=== PATIENT | male | born 1945 | race Caucasian/White ===

== ENCOUNTER 2022-01-29 10:22 | Day surgery (SDC) | payer MEDICARE, BC ==
[2022-01-24 13:50] LABS: BASOPHILS % (AUTO) 0.5 % (0-1); EOSINOPHILS # (AUTO) 0.1 X10'3 (0-0.9); EOSINOPHILS % (AUTO) 1.1 % (0-6); HEMATOCRIT 43.4 % (42.0-52.0); HEMOGLOBIN 14.5 g/dl (14.0-17.9); LYMPHOCYTES # (AUTO) 1.1 X10'3 (1.1-4.8); LYMPHOCYTES % (AUTO) 15.8 % (21-51); MEAN CORPUSCULAR HEMOGLOBIN 29.4 PG (27.0-31.0); MEAN CORPUSCULAR HGB CONC 33.3 g/dL (33.0-36.5); MEAN CORPUSCULAR VOLUME 88.1 FL (78-98); MEAN PLATELET VOLUME 7.9 FL (7.4-10.4); MONOCYTES # (AUTO) 0.6 X10'3 (0-0.9); MONOCYTES % (AUTO) 7.8 % (2-12); NEUTROPHILS # (AUTO) 5.3 X10'3 (1.8-7.7); NEUTROPHILS % (AUTO) 74.8 % (42-75); PLATELET COUNT 222 X10'3 (140-440); RED BLOOD COUNT 4.93 X10'6 (4.70-6.10); RED CELL DISTRIBUTION WIDTH 15.2 % (11.5-14.5); WHITE BLOOD COUNT 7.1 X10'3 (4.5-11.0)
[2022-01-24 14:06] LABS: ALBUMIN 3.6 G/DL (3.4-5.0); ANION GAP 9 (8-16); BLOOD UREA NITROGEN 21 MG/DL (7-18); BUN/CREATININE RATIO 25.3 (5.4-32.0); CALCIUM 8.7 MG/DL (8.5-10.1); CHLORIDE 108 MMOL/L (99-107); CHOLESTEROL 128 MG/DL (0-200); CREATININE 0.83 MG/DL (0.60-1.10); GLUCOSE 95 MG/DL (70-104); HDL CHOLESTEROL 43 MG/DL (35-60); LDL CHOLESTEROL 73 MG/DL (50-100); SODIUM 140 MMOL/L (135-145); TOTAL CARBON DIOXIDE 23.3 MMOL/L (24-32); TRIGLYCERIDES 64 MG/DL (20-135); eGFR 90 ML/MIN
[2022-01-24 14:27] LABS: POTASSIUM 4.3 MMOL/L (3.5-5.1)
[2022-01-24 15:01] LABS: APTT 28 SECONDS (22-32)
[2022-01-29] VITALS (10 sets, daily range): BP systolic 107–144; BP diastolic 53–78
[~2022-01-29] VITALS: Ht 170.2 cm; Wt 81.2 kg
[2022-01-29] MEDS ORDERED: diphenhydrAMINE 25mg capsule PO PRN (10:45)
[2022-01-29] MEDS ORDERED: normal saline 1,000 ML IV SCH (10:45)
[2022-01-29] MEDS ORDERED: LORazepam 0.5 MG tablet PO PRN (10:45)
[2022-01-29] MEDS ORDERED: ROSU10TA28 PO (11:30)
[2022-01-29] MEDS ORDERED: METO25TA6 PO (11:30)
[2022-01-29] MEDS ORDERED: CO Q 10 (11:30)
[2022-01-29] MEDS ORDERED: ASPI-1397 PO (11:30)
[2022-01-29] MEDS ORDERED: ALLO300T8 PO (11:30)
[2022-01-29] MEDS ORDERED: BIOTIN (11:30)
[2022-01-29] MEDS ORDERED: LISI10TA27 PO (11:30)
[2022-01-29] MEDS ORDERED: FLO0.4C PO (11:30)
[2022-01-29] MEDS ORDERED: COLC0.6T72 PO (11:30)
[2022-01-29] MEDS ORDERED: DEXL60CA6 (11:30)
[2022-01-29] MEDS ORDERED: SOLI10TA7 PO (11:30)
[2022-01-29] MEDS ORDERED: VITAMIN D3 (11:30)
[2022-01-29] MEDS ORDERED: midazolam 1 mg/ML 2ml injection ONE (12:06)
[2022-01-29] MEDS ORDERED: verapamil 2.5 mg/ml inj IV ONE (12:06)
[2022-01-29] MEDS ORDERED: LIDOcaine 1% (10mg/ml) 2ml vial ONE (12:06)
[2022-01-29] MEDS ORDERED: nitroGLYCERIN-Tridil 50MG/D5W 250 ML IV ONE (12:06)
[2022-01-29] MEDS ORDERED: fentaNYL/PF 50MCG/1 ML 2ML syringe ONE (12:07)
[2022-01-29] MEDS ORDERED: heparin 1,000unit/ml 10ml vial 10 ML ONE (12:07)
[2022-01-29] MEDS ORDERED: iohexol 350MG/ML 100ml bottle IV ONE (12:07)
[2022-01-29] MEDS ORDERED: HYDROcodone/acetaminophen 10/325mg tab PO PRN (14:00)
[2022-01-29] MEDS ORDERED: HYDROcodone/acetaminophen 5mg/325mg tablet PO PRN (14:00)
== END 2022-01-29 16:37 | disposition home or self-care (01) ==
LOC: SSTAY O 10:22
PROVIDERS: ATTEND Student in an Organized Health Care Education/Training Program
DX: R94.39 Abnormal result of other cardiovascular function study (principal); I10 Essential (primary) hypertension; E78.5 Hyperlipidemia, unspecified; I25.10 Atherosclerotic heart disease of native coronary artery without angina pectoris; Z79.899 Other long term (current) drug therapy; Z98.890 Other specified postprocedural states
CPT/HCPCS: 36415; 80048; 80061; 85025; 85610; 85730; 93005; 93458; 99152; 99153; C1769; C1894; J1644; J2250; J3010; J3490; J7030; Q0163; Q9967; A4620; A5120; A6258; A6402